=== PATIENT | male | born 1940 | race Caucasian/White ===

== ENCOUNTER 2023-04-20 04:50 | Emergency (ER) | payer OTHER, MEDICARE ==
[~2023-04-20] VITALS: Ht 190.5 cm; Wt 97.7 kg
[2023-04-20 04:53] VITALS: TEMP 97.5
[2023-04-20] MEDS ORDERED: cloNIDine 0.1 mg tablet PO SCH ×2 (05:15→08:00)
[2023-04-20] MEDS: cloNIDine 0.1 mg tablet PO ONE (05:18)
[2023-04-20 05:38] VITALS: BP 178/87; PULSE 77; RESP 18; O2SAT 95
== END 2023-04-20 05:47 ==
LOC: ER 04:52
DX: I16.1 Hypertensive emergency (principal)
CPT/HCPCS: 99283